=== PATIENT | female | born 1965 | race Hispanic/Latino ===

== ENCOUNTER 2021-04-14 20:05 | Emergency (ER) | payer SELFPAY ==
[~2021-04-14] VITALS: Ht 152.4 cm; Wt 127.0 kg
[2021-04-14 21:16] LABS: APPEARANCE,URINE Clear (CLEAR); BILIRUBIN,URINE Negative (NEGATIVE); COLOR,URINE Yellow (YELLOW); GLUCOSE, URINE (UA) Negative (NEGATIVE); KETONES,URINE Negative (NEGATIVE); LEUKOCYTE ESTERASE ,URINE Moderate (NEGATIVE); NITRATE,URINE Negative (NEGATIVE); OCCULT BLOOD,URINE Small (NEGATIVE); PROTEIN,URINE POS 2+ mg/dL (NEGATIVE)
[2021-04-14 21:35] LABS: BACTERIA,URINE Rare /HPF (None Seen); RBC,URINE None Seen /HPF (0-1); SQUAMOUS EPITHELIAL CELL,UR 0-2 /HPF (0-2); WBC,URINE 26-50 /HPF (0-1)
[2021-04-14 22:29] LABS: BASOPHILS % (AUTO) 0.3 % (0.0-5.0); EOSINOPHILS % (AUTO) 0.4 % (0.0-8.0); HEMATOCRIT 42.9 % (36-48); LYMPHOCYTES % (AUTO) 14.5 % (21.0-51.0); MEAN CORPUSCULAR HGB CONC 31.5 g/dL (32.0-36.0); MEAN CORPUSCULAR VOLUME 88.8 fL (79-99); MONOCYTES % (AUTO) 6.9 % (3.0-13.0); PLATELET COUNT (AUTO) 201 K/uL (130-400); RED BLOOD CELL COUNT(AUTO) 4.83 MIL/uL (4.00-5.50); RED CELL DISTRIBUTION WIDTH 13.6 % (11.0-15.5); WHITE BLOOD COUNT (AUTO) 9.1 K/uL (4.8-10.8)
[2021-04-14] MEDS ORDERED: LABETALOL 20MG VIAL IV ONE (22:30)
[2021-04-14] MEDS ORDERED: ACETAMINOPHEN 500 MG TABLET PO ONE (22:30)
[2021-04-14] MEDS ORDERED: CEFTRIAXONE 1G VIAL IVP ONE (22:30)
[2021-04-14 22:40] LABS: CREATININE 1.5 mg/dL (0.5-1.5); POTASSIUM 4.3 mmol/L (3.5-5.1)
[2021-04-14 22:43] VITALS: BP 190/94
[2021-04-14 22:44] LABS: ALBUMIN 3.7 g/dL (3.5-5.0); BILIRUBIN,TOTAL 0.7 mg/dL (0.2-1.0); TOTAL PROTEIN, SERUM 8.7 g/dL (6.0-8.3)
[2021-04-14 23:10] VITALS: BP 163/69
[2021-04-14] MEDS ORDERED: ONDA4TAB10 PO (23:48)
[2021-04-14] MEDS ORDERED: MACR100 PO (23:48)
[2021-04-14 23:59] VITALS: BP 156/72
[2021-04-15] MEDS ORDERED: KETOROLAC 15MG/ML VIAL (15MG/ML) IV ONE
[2021-04-15] MEDS ORDERED: ORPHENADRINE CITRATE 30 MG/ML ML IV ONE
== END 2021-04-15 00:22 | disposition home or self-care (01) ==
LOC: EDH 20:05
DX: R50.9 Fever, unspecified (principal); N30.00 Acute cystitis without hematuria; M62.838 Other muscle spasm; E11.9 Type 2 diabetes mellitus without complications; E78.00 Pure hypercholesterolemia, unspecified; I10 Essential (primary) hypertension; Z20.822 Contact with and (suspected) exposure to COVID-19; Z98.890 Other specified postprocedural states
CPT/HCPCS: 36415; 71045; 80053; 81001; 83605; 85025; 87077; 87088; 87186; 87635; 87804 ×2; 96365; 96375; 99285; C9803; J0696; J2360